=== PATIENT | female | born 1985 | race African-American/Black ===

== ENCOUNTER 2021-02-24 06:15 | Inpatient (IN) | payer BC, OTHER ==
[2021-02-24] MEDS ORDERED: ELECTROLYTE-148 SOLN 500 ML IV ONE ×2 (06:40→08:01)
[2021-02-24] MEDS: ELECTROLYTE-148 SOLN 1,000 ML IV SCH (07:15)
[2021-02-24 07:42] VITALS: BMI 37.2
[2021-02-24] MEDS ORDERED: OXYTOCIN 20 UNITS in 0.9% NS 40 UNIT/2,000 ML INFUS.BAG IV ONE (07:44)
[2021-02-24] MEDS ORDERED: DEXAMETHASONE SOD PHOSPHATE 4 MG/1 ML VIAL ONE (07:47)
[2021-02-24] MEDS ORDERED: PHENYLEPHRINE HCL 10 MG/1 ML SINGLE DOSE VIAL ONE (07:47)
[2021-02-24] MEDS ORDERED: ONDANSETRON 4 MG/2 ML VIAL ONE (07:47)
[2021-02-24] MEDS ORDERED: morphine SULFATE/PF 0.5 MG/ML (2cc Syringe - QUVA) ONE (07:47)
[2021-02-24] MEDS ORDERED: ceFAZolin SODIUM 1 GM VIAL ONE (07:47)
[2021-02-24] MEDS ORDERED: CITRIC ACID/SODIUM CITRATE 30 ML UNIT-DOSE CUP PO ONE ×2 (08:01→08:03)
[2021-02-24] MEDS ORDERED: MIDAZOLAM HCL 2 MG/2 ML SINGLE DOSE VIAL ONE (08:41)
[2021-02-24] MEDS ORDERED: KETOROLAC TROMETHAMINE 30 MG/1 ML VIAL ONE (09:01)
[2021-02-24] MEDS ORDERED: METHYLERGONOVINE MALEATE 0.2 MG/1 ML AMP IM PRN (09:28)
[2021-02-24] MEDS ORDERED: OXYTOCIN 20 UNITS in 0.9% NS 20 UNIT/1,000 ML INFUS.BAG IV SCH (09:30)
[2021-02-24] MEDS ORDERED: ONDANSETRON 4 MG/2 ML VIAL IVPUSH PRN (09:53)
[2021-02-24] MEDS ORDERED: ACETAMINOPHEN 1000 MG/100 ML VIAL (NON FORMULARY) IVPB PRN (09:55)
[2021-02-24] MEDS ORDERED: OXYTOCIN 20 UNITS in 0.9% NS 20 UNIT/1,000 ML INFUS.BAG IV ONE (10:23)
[2021-02-24] MEDS: IBUPROFEN 800 MG/8 ML IJ IVPB PRN ×2 (11:01→18:17)
[2021-02-25] MEDS: ELECTROLYTE-148 SOLN 1,000 ML IV SCH (08:18)
[2021-02-25] MEDS ORDERED: BISACODYL 10 MG SUPP.RECT RC PRN (09:28)
[2021-02-25] MEDS ORDERED: DIPHTH,PERTUSS(ACELL),TET 0.5 ML DISP.SYRIN IM ONE (10:00)
[2021-02-25 10:06] LABS: BASO % 0.3 % (0-2.0); EOS % 0.5 % (0-4.5); HEMATOCRIT 31.1 % (32.4-45.2); HEMOGLOBIN 10.6 GM/dL (10.7-15.3); LYMPH % 21.3 % (8-40); MCH 34.8 pg (25.7-33.7); MCHC 34.2 g/dl (32.0-36.0); MEAN CELL VOLUME 101.8 fl (80-96); MEAN PLT VOLUME 10.8 fl (7.5-11.1); MONO % 6.6 % (3.8-10.2); NEUT % 71.3 % (42.8-82.8); PLATELET COUNT 134 10^3/uL (134-434); RBC 3.06 M/mm3 (3.60-5.2); RDW 14.2 % (11.6-15.6)
[2021-02-25] MEDS: oxyCODONE HCL 5 MG TABLET PO PRN ×3 (11:09→21:15)
[2021-02-25] MEDS: SIMETHICONE 80 MG TAB.CHEW (FP) PO PRN ×2 (11:10→15:13)
[2021-02-25] MEDS: IBUPROFEN 600 MG TABLET (FP) PO PRN (12:52)
[2021-02-25] MEDS: SENNOSIDES/DOCUSATE COMBO (SENNA PLUS) TABLET (UD) PO PRN (21:25)
[2021-02-26] MEDS: SIMETHICONE 80 MG TAB.CHEW (FP) PO PRN ×4 (03:07→20:55)
[2021-02-26] MEDS: IBUPROFEN 600 MG TABLET (FP) PO PRN ×4 (06:07→20:54)
[2021-02-26] MEDS: ACETAMINOPHEN 325 MG TABLET (FP) PO PRN ×3 (09:54→20:55)
[2021-02-26] MEDS: SENNOSIDES/DOCUSATE COMBO (SENNA PLUS) TABLET (UD) PO PRN (20:55)
[2021-02-27] MEDS: IBUPROFEN 600 MG TABLET (FP) PO PRN (03:17)
[2021-02-27] MEDS: ACETAMINOPHEN 325 MG TABLET (FP) PO PRN (03:20)
[2021-02-27] MEDS: oxyCODONE HCL 5 MG TABLET PO PRN (08:31)
[2021-02-27 09:35] VITALS: BP 109/66; PULSE 56; TEMP 97.9
== END 2021-02-27 14:00 | disposition home or self-care (01) | DRG 788 ==
LOC: JLDR 06:15 → J3W 10:40
PROVIDERS: ADMIT Obstetrics & Gynecology; ATTEND Obstetrics & Gynecology
PROC: 10D00Z1 Extraction of Products of Conception, Low, Open Approach (ICD-10-PCS; principal; 2021-02-24)
DX: O34.211 Maternal care for low transverse scar from previous cesarean delivery (principal); O77.0 Labor and delivery complicated by meconium in amniotic fluid; Z3A.40 40 weeks gestation of pregnancy; Z37.0 Single live birth
CPT/HCPCS: 36415; 85025; 88307-TC; 90715; J0131